=== PATIENT | female | born 1995 | race Caucasian/White ===

== ENCOUNTER 2018-04-17 21:43 | Emergency (ER) | payer BC ==
[2018-04-17 22:02] VITALS: O2SAT 98
--- NOTE | 2018-04-17 22:22 | ERPHSYRPT ---
- History of Present Illness Time Seen by Provider: 04/17/18 22:17 Source: patient Exam Limitations: no limitations Patient Subjective Stated Complaint: pt is alert and oriented. pt is ambulatory with a steady gait. pt states that she has been dizzy since 1900 today. pt states that while lying still she feels slight dizziness but much worse upon movement. pt states that she reached above her earlier and felt dizzy to the point that she fell over and landed on her right side. pt denies pain or injury on that side. pt PERRLA. no one sided weakness noted. pt denies tinnitus. pt states she has only a slight headache that comes and goes but is gone at present time. Triage Nursing Assessment: see above Physician History: The patient is a 22-year-old female with her family complaining that she has had worsening dizziness that began early today. It hit her much harder this evening about 7 PM. When she stands up and walks she feels "tippy". She feels a little bit weak at times. Her head feels heavy. She denies pain. Her last menstrual period began today. She's had no recent head trauma. She takes no medicines. Timing/Duration: today Severity: moderate Character of Deficits: none Deficits: weak Baseline/Normal Cognition: alert oriented x 3 Current Cognition: alert oriented x 3 Baseline Gait: walks w/o assistance Associated Symptoms: nausea, No vomiting, No weakness Allergies/Adverse Reactions: scopolamine Adverse Reaction (Verified 04/17/18 22:03) Home Medications: Escitalopram Oxalate [Lexapro] 10 mg PO DAILY 04/17/18 [History] Hydroxyzine HCl 25 mg [Atarax 25 mg] 10 mg PO Q6-8HPRN PRN 04/17/18 [ History] Norethindrone-Ethinyl Estrad [Nortrel 0.5-35-28 Tablet] 0.5 mg PO DAILY [History] Hx Tetanus, Diphtheria Vaccination/Date Given: Yes Immunizations Up to Date: Yes - Review of Systems Constitutional: No Fever, No Chills Eyes: No Symptoms Ears, Nose, & Throat: No Symptoms Respiratory: No Cough, No Dyspnea Cardiac: No Chest Pain, No Edema, No Syncope Abdominal/Gastrointestinal: No Abdominal Pain, No Nausea, No Vomiting, No Diarrhea Genitourinary Symptoms: No Dysuria Musculoskeletal: No Back Pain, No Neck Pain Skin: No Rash Neurological: Dizziness Psychological: No Symptoms Endocrine: No Symptoms Hematologic/Lymphatic: No Symptoms Immunological/Allergic: No Symptoms All Other Systems: Reviewed and Negative - Past Medical History Pertinent Past Medical History: Yes Neurological History: No Pertinent History ENT History: No Pertinent History Cardiac History: No Pertinent History Respiratory History: No Pertinent History Endocrine Medical History: No Pertinent History Musculoskeletal History: No Pertinent History GI Medical History: No Pertinent History History: No Pertinent History Psycho-Social History: Anxiety, Depression Female Reproductive Disorders: Abnormal Uterine Bleeding, Other Other Medical History: DUB. - Past Surgical History Past Surgical History: Yes Other Surgical History: ganglion cyst removal - Social History Smoking Status: Current every day smoker How long have you smoked: 3 years Drug Use: none - Female History Hx Last Menstrual Period: 04/17/18 Hx Now: No - Nursing Vital Signs Nursing Vital Signs: Initial Vital Signs Temperature 99.1 F 04/17/18 21:43 Pulse Rate 96 H 04/17/18 21:43 Respiratory Rate 16 04/17/18 21:43 Blood Pressure 121/98 04/17/18 21:43 O2 Sat by Pulse Oximetry 98 04/17/18 21:43 Pain Scale Pain Intensity 0 - [place] Coma Scale Best Eye Response ([place]): (4) open spontaneously Best Verbal Response ([place]): (5) oriented Best Motor Response ([place]): (6) obeys commands [place] Total: 15 - Physical Exam General Appearance: no apparent distress, alert Eye Exam: bilateral eye: PERRL, EOMI Ears, Nose, Throat Exam: normal ENT inspection, moist mucous membranes Neck Exam: normal inspection, non-tender, supple Respiratory: normal breath sounds, lungs clear, airway intact, No respiratory distress Cardiovascular: regular rate/rhythm, No edema Gastrointestinal: soft, No tenderness, No distention Pelvic Exam: not done Rectal Exam: not done Back Exam: normal inspection Extremity Exam: normal inspection, No pedal edema Mental Status: alert, 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 Coordination/Gait: normal finger to nose, normal gait Motor/Sensory: no motor deficit Skin Exam: normal color, warm, dry, No rash SpO2 Interpretation: normal SpO2: 98 Oxygen Delivery: Room Air - Course EKG Interpreted by Me: RATE, Sinus Rhythm, NORMAL AXIS, NORMAL INTERVALS, NORMAL QRS, NORMAL ST-T Ordered Tests: Active Orders 24 hr Category Date Time Status EKG-ER Only STAT Care 04/17/18 22:25 Active IV Insertion STAT Care 04/17/18 22:25 Active Orthostatic Vital Signs STAT Care 04/17/18 22:20 Active BMP Stat Lab 04/17/18 22:40 Completed CBC W DIFF Stat Lab 04/17/18 22:40 Completed HCG QUALITATIVE,SERUM Stat Lab 04/17/18 22:40 Completed UA W/ MICROSCOPIC Stat Lab 04/17/18 22:40 Completed Medication Summary Discontinued Medications Generic Name Dose Route Start Last Admin Trade Name Freq PRN Reason Stop Dose Admin Sodium Chloride 1,000 mls @ 999 mls/hr 04/17/18 22:25 04/17/18 22:52 Sodium Chloride 0.9% 1000 Ml IV 04/17/18 23:25 999 mls/hr .Q1H1M STA Administration Sodium Chloride Confirm 04/17/18 22:49 Sodium Chloride 0.9% 1000 Ml Administered 04/17/18 22:50 Dose 1,000 mls @ ud .ROUTE .STK-MED ONE Ondansetron HCl 4 mg 04/17/18 22:25 04/17/18 22:52 Zofran 4 Mg/2 Ml Vial IV 04/17/18 22:26 4 mg STAT ONE Administration Ondansetron HCl Confirm 04/17/18 22:49 Zofran 4 Mg/2 Ml Vial Administered 04/17/18 22:50 Dose 4 mg .ROUTE .STK-MED ONE Potassium Chloride 20 meq 04/17/18 23:40 Klor Con 10 Meq PO 04/17/18 23:41 STAT ONE Lab/Rad Data: Laboratory Result Diagrams 04/17/18 22:40 04/17/18 22:40 Laboratory Results 04/17/18 04/17/18 04/17/18 Range/Units 22:40 22:40 22:40 WBC (4.0-10.5) K/mm3 RBC (4.1-5.4) M/mm3 Hgb (12.0-16.0) gm/dl Hct (35-47) % MCV (78-100) fl MCH (26-32) pg MCHC (32-36) g/dl RDW (11.5-14.0) % Plt Count (150-450) K/mm3 MPV (6-9.5) fl Gran % (36.0-66.0) % Eos # (Auto) (0-0.5) Absolute Lymphs (auto) (1.0-4.6) Absolute Monos (auto) (0.0-1.3) Lymphocytes % (24.0-44.0) % Monocytes % (0.0-12.0) % Eosinophils % (0.00-5.0) % Basophils % (0.0-0.4) % Absolute Granulocytes (1.4-6.9) Basophils # (0-0.4) Sodium 141 (137-145) mmol/L Potassium 3.3 L (3.5-5.1) mmol/L Chloride 105 (98-107) mmol/L Carbon Dioxide 25 (22-30) mmol/L Anion Gap 13.5 (5-15) MEQ/L BUN 10 (7-17) mg/dL Creatinine 0.73 (0.52-1.04) mg/dL Estimated GFR > 60.0 ML/MIN Glucose 107 H (74-106) mg/dL Calcium 9.7 (8.4-10.2) mg/dL Serum , Qual NEGATIVE (Negative) Ur Collection Type CLEAN CATCH Urine Color YELLOW (YELLOW) Urine Appearance CLEAR (CLEAR) Urine pH 5.0 (5-6) Ur Specific [place] 1.030 (1.005-1.025) Urine Protein NEGATIVE (Negative) Urine Ketones NEGATIVE (NEGATIVE) Urine Blood TRACE NON-HEM (0-5) Hi/ul Urine Nitrite NEGATIVE (NEGATIVE) Urine Bilirubin NEGATIVE (NEGATIVE) Urine Urobilinogen NORMAL (0-1) mg/dL Ur Leukocyte Esterase NEGATIVE (NEGATIVE) Urine Microscopic RBC 0-2 (0-2) /HPF Urine Microscopic WBC 0-2 (0-5) /HPF Ur Epithelial Cells FEW (FEW) /HPF Urine Bacteria RARE (NEGATIVE) /HPF Urine Mucus SLIGHT (NEGATIVE) /HPF Urine Culture Reflexed NO (NO) Urine Glucose NEGATIVE (NEGATIVE) mg/dL 04/17/18 Range/Units 22:40 WBC 8.1 (4.0-10.5) K/mm3 RBC 4.57 (4.1-5.4) M/mm3 Hgb 14.0 (12.0-16.0) gm/dl Hct 41.2 (35-47) % MCV 90.2 (78-100) fl MCH 30.6 (26-32) pg MCHC 34.0 (32-36) g/dl RDW 13.0 (11.5-14.0) % Plt Count 267 (150-450) K/mm3 MPV 10.4 H (6-9.5) fl Gran % 54.5 (36.0-66.0) % Eos # (Auto) 0.51 H (0-0.5) Absolute Lymphs (auto) 2.72 (1.0-4.6) Absolute Monos (auto) 0.43 (0.0-1.3) Lymphocytes % 33.7 (24.0-44.0) % Monocytes % 5.3 (0.0-12.0) % Eosinophils % 6.3 H (0.00-5.0) % Basophils % 0.2 (0.0-0.4) % Absolute Granulocytes 4.38 (1.4-6.9) Basophils # 0.02 (0-0.4) Sodium (137-145) mmol/L Potassium (3.5-5.1) mmol/L Chloride (98-107) mmol/L Carbon Dioxide (22-30) mmol/L Anion Gap (5-15) MEQ/L BUN (7-17) mg/dL Creatinine (0.52-1.04) mg/dL Estimated GFR ML/MIN Glucose (74-106) mg/dL Calcium (8.4-10.2) mg/dL Serum , Qual (Negative) Ur Collection Type Urine Color (YELLOW) Urine Appearance (CLEAR) Urine pH (5-6) Ur Specific [place] (1.005-1.025) Urine Protein (Negative) Urine Ketones (NEGATIVE) Urine Blood (0-5) Hi/ul Urine Nitrite (NEGATIVE) Urine Bilirubin (NEGATIVE) Urine Urobilinogen (0-1) mg/dL Ur Leukocyte Esterase (NEGATIVE) Urine Microscopic RBC (0-2) /HPF Urine Microscopic WBC (0-5) /HPF Ur Epithelial Cells (FEW) /HPF Urine Bacteria (NEGATIVE) /HPF Urine Mucus (NEGATIVE) /HPF Urine Culture Reflexed (NO) Urine Glucose (NEGATIVE) mg/dL - Progress Progress: improved Counseled pt/family regarding: lab results, diagnosis, need for follow-up - Departure Time of Disposition: 23:44 Departure Disposition: Home Clinical Impression: Dizziness, Mild dehydration, Hypokalemia Condition: Stable Critical Care Time: No Referrals: Provider,Unknown [Primary Care Provider] - Additional Instructions: You experienced dizziness likely due to mild dehydration. You were given fluids by IV in the ER. Your serum potassium level was also mildly low. You were given potassium 20 mEq orally. Stay well hydrated. Follow-up with your primary medical doctor in one to 2 days.
[2018-04-17] MEDS ORDERED: Zofran 4 MG/2 ML VIAL IV ONE (22:25)
[2018-04-17] MEDS ORDERED: Sodium Chloride 0.9% 1000 ML 1,000 ML IV STA (22:25)
[2018-04-17] MEDS ORDERED: Zofran 4 MG/2 ML VIAL ONE (22:49)
[2018-04-17] MEDS ORDERED: Sodium Chloride 0.9% 1000 ML 1,000 ML ONE (22:49)
[2018-04-17 23:13] LABS: BASOPHIL % 0.2 % (0.0-0.4); Basophil (Absolute #) 0.02 (0-0.4); Eosinophil % 6.3 % (0.00-5.0); Eosinophil (Absolute #) 0.51 (0-0.5); Granulocyte Absolute (ANC) 4.38 (1.4-6.9); Granulocytes % 54.5 % (36.0-66.0); Hematocrit 41.2 % (35-47); Lymphocyte (Absolute #) 2.72 (1.0-4.6); Lymphocytes % 33.7 % (24.0-44.0); Mean Cell Volume 90.2 fl (78-100); Mean Corpuscular Hemoglobin 30.6 pg (26-32); Mean Platelet Volume 10.4 fl (6-9.5); Monocyte (Absolute #) 0.43 (0.0-1.3); Monocytes % 5.3 % (0.0-12.0); Platelet Count 267 K/mm3 (150-450); Red Blood Count 4.57 M/mm3 (4.1-5.4); White Blood Count 8.1 K/mm3 (4.0-10.5)
[2018-04-17 23:32] LABS: ANION GAP 13.5 MEQ/L (5-15); BLOOD UREA NITROGEN 10 mg/dL (7-17); CHLORIDE 105 mmol/L (98-107); Calcium 9.7 mg/dL (8.4-10.2); Carbon Dioxide 25 mmol/L (22-30); Creatinine 1 0.73 mg/dL (0.52-1.04); Glucose 107 mg/dL (74-106); Potassium 3.3 mmol/L (3.5-5.1); SODIUM 141 mmol/L (137-145)
[2018-04-17 23:36] LABS: Appearance CLEAR (CLEAR); Bilirubin NEGATIVE (NEGATIVE); Blood TRACE NON-HEM Ery/ul (0-5); Glucose NEGATIVE (NEGATIVE); Ketones NEGATIVE (NEGATIVE); Leukocyte Esterase NEGATIVE (NEGATIVE); Nitrite NEGATIVE (NEGATIVE); Protein,Urine Dip NEGATIVE (Negative); Urobilinogen NORMAL mg/dL (0-1)
[2018-04-17 23:37] LABS: Bacteria RARE /HPF (NEGATIVE); Epithelial Cells FEW /HPF (FEW); Mucus SLIGHT /HPF (NEGATIVE); RBC 0-2 /HPF (0-2); WBC 0-2 /HPF (0-5)
[2018-04-17] MEDS ORDERED: Klor Con 10 MEQ PO ONE ×2 (23:40→23:44)
[2018-04-18 00:21] VITALS: BP 120/77; PULSE 76
== END 2018-04-17 23:58 | disposition home or self-care (01) ==
LOC: ED 21:43
DX: R42 Dizziness and giddiness (principal); E86.0 Dehydration; E87.6 Hypokalemia; Z79.899 Other long term (current) drug therapy
CPT/HCPCS: 36000; 36415; 80048; 81000; 84703; 85025; 93005; 96360; 96374; 99284; J2405; A9270-GY